=== PATIENT | male | born 1990 | race Native Hawaiian/Other Pacific Islander ===

== ENCOUNTER 2018-07-16 07:28 | Emergency (ER) | payer OTHER ==
[~2018-07-16] VITALS: Ht 190.5 cm; Wt 90.7 kg
[2018-07-16 07:28] VITALS: TEMP 98.9
[2018-07-16 08:27] LABS: PLATELET COUNT 220 K/uL (142-355)
[2018-07-16 08:38] LABS: POTASSIUM 3.5 mmol/L (3.6-5.2)
[2018-07-16 10:25] VITALS: BP 121/77
== END 2018-07-16 10:26 ==
LOC: EDBD 07:28 → ED 07:28
PROVIDERS: Internal Medicine
PROC: 0CQ10ZZ Repair Lower Lip, Open Approach (ICD-10-PCS; principal; 2018-07-16)
DX: S00.83XA Contusion of other part of head, initial encounter (principal); S10.83XA Contusion of other specified part of neck, initial encounter; V47.5XXA Car driver injured in collision with fixed or stationary object in traffic accident, initial encounter; Y93.89 Activity, other specified; Y92.89 Other specified places as the place of occurrence of the external cause; S01.511A Laceration without foreign body of lip, initial encounter
CPT/HCPCS: 36415; 80053; 85027; 90471; 90715; 96374; 96375; 99284; J2270; J2405

== ENCOUNTER 2020-11-17 08:58 | Outpatient (CLI) | payer OTHER | END 2020-11-17 22:39 | disposition home or self-care (01) | LOC: INF 08:58 | PROVIDERS: ATTEND Internal Medicine | DX: Z23 Encounter for immunization (principal) | CPT/HCPCS: 96372 ==

== ENCOUNTER 2020-12-09 09:09 | Outpatient (CLI) | payer OTHER | END 2020-12-09 19:35 | disposition home or self-care (01) | LOC: INF | PROVIDERS: ATTEND Internal Medicine | DX: Z23 Encounter for immunization (principal) | CPT/HCPCS: 96372 ==

== ENCOUNTER 2020-12-17 13:54 | Emergency (ER) | payer OTHER ==
[~2020-12-17] VITALS: Ht 185.4 cm; Wt 96.2 kg
[2020-12-17 13:57] VITALS: TEMP 97.8
[2020-12-17 14:49] LABS: PLATELET COUNT 176 K/uL (142-355)
[2020-12-17 14:59] LABS: POTASSIUM 3.5 mmol/L (3.6-5.2)
[2020-12-17 16:45] VITALS: BP 138/85
== END 2020-12-17 16:47 | disposition home or self-care (01) ==
LOC: ED 13:54
PROVIDERS: Family Medicine
DX: M25.472 Effusion, left ankle (principal); L08.89 Other specified local infections of the skin and subcutaneous tissue
CPT/HCPCS: 80053; 85027; 96372; 99283

== ENCOUNTER 2022-09-22 09:21 | Outpatient (CLI) | payer OTHER ==
[2022-09-22 10:12] LABS: PLATELET COUNT 221 K/uL (142-355)
[2022-09-22 10:19] LABS: POTASSIUM 4.3 mmol/L (3.6-5.2); SODIUM 139 mmol/L (136-145)
== END 2022-09-22 19:52 | disposition home or self-care (01) ==
LOC: RESP 09:21
PROVIDERS: ATTEND Nurse Practitioner Family
DX: M25.512 Pain in left shoulder (principal)
CPT/HCPCS: 36415; 80053; 82550; 82553; 84484; 85027; 93005